=== PATIENT | male | born 1960 | race Caucasian/White ===

== ENCOUNTER 2023-02-06 05:16 | Observation (INO) ==
--- NOTE | 2022-12-31 14:57 | PAT Medication Instructions ---
Medication Instructions Date of Service December 31, 2022 Home Medications Medication Instructions Recorded amoxicillin 500 mg tablet 2,000 mg PO ONCE #4 tabs 10/17/22 amoxicillin 500 mg tablet 2,000 mg PO ONCE Continue as directed amoxicillin 500 mg tablet 2,000 mg PO ONCE Other Notes NOTHING TO EAT OR DRINK AFTER MIDNIGHT. If you have any questions please call us at [phone] or [phone] or [phone] or [phone]
--- NOTE | 2023-01-08 10:56 | Anesthesiology Consultation ---
Date of Service January 08, 2023 Assessment & Plan (1) Encounter for pre-operative examination: - COVID screening: Per assessment on 01/08: No known COVID-19 positive contacts or current COVID-19 related symptoms. Travel screen negative. Patient vaccinated. At surgeon discretion if preop Covid testing being done. - Outpatient joint assessment: Pt currently scheduled for inpatient pathway. If surgeon requests review for outpatient joint pathway, patient is an acceptable candidate for outpatient joint program from anesthesia standpoint pending surgeon's office assessment that patient is motivated, has good support and completes [facility] preop requirements. - S/P Right TKA (04/18/20): SAB at L3-4 (x1 attempt) + PNB at [facility]. No issues noted per post-op anesthesia progress note. - S/P Right open biceps repair (11/14/20): LMA#5 at [facility] Chart Review Chart Review: Acceptable Risk for Surgery and Patient seen in Pre Admission Testing Teaching & Discussion Pre-Anesthesia Teaching/Discussion Notes: Instructed NPO after midnight before surgery,except medications with 15 cc of water. Medication instructions provided according to the PAT guidelines. History Surgery Operation Date: 02/06/23 07:00 Proposed Procedures p Left Total Knee Arthroplasty - Kermit Peralta MD Height/Weight Height: 5 ft 11 in Weight: 104.6 kg Allergies Allergy/AdvReac Type Severity Reaction Status Date / Time aspirin Allergy Mild eye Verified 12/31/22 13:19 swelling Medications Home Medications Medication Instructions Recorded Confirmed Last Taken amoxicillin 500 mg tablet 2,000 mg PO ONCE #4 tabs 10/17/22 12/31/22 Unknown Past Medical History Medical History GERD (gastroesophageal reflux disease) Hemochromatosis associated with mutation in HFE gene Therapeutic phlebotomy approximately every other month History of COVID-19 Antibody test performed when donating blood 10/17/2020 and was positive (pt states he never had symptoms)- had Covid in 07/2020 Left knee DJD Obesity Osteoarthritis Umbilical hernia Exercise / Class Metabolic Activity II 4-5 Yardwork/Stairs/Walk up hill Past Family History Family History Other No family history of adverse response to anesthesia Past Surgical History Surgical History History of colonoscopy History of surgery Right open biceps repair (11/14/20): LMA#5 at [facility] History of total knee replacement Right Hx of arthroscopy of knee Right x2 Hx of tonsillectomy Hx of vasectomy Past Anesthesia History No Hx of Anesthesia Complications and No Family Hx of Anesthesia Complications History of PONV No Hx of PONV and No Hx of Motion Sickness Social History Smoking Status: Never smoker Do You Dip or Chew Tobacco: No Hx Alcohol Use: Yes Alcohol type: beer alcohol intake frequency: a few times a week Hx Substance Use: No substance use type: does not use Review of Systems Patient denies chest pain, shortness of breath, dyspnea on exertion, fever, chills, cough, wheezing, palpitations. Physical Exam Vital Signs VITALS BP 155/92 P 70 TEMP 97.8 SP02 95%RA RESP 18 PHYSICAL Full cervical extension range of motion. Full TMJ range of motion. TMD 3.5 finger breaths Mallampati Score 3 Dentition: missing teeth, crown (molar) Lungs: clear throughout to auscultation Cardiac: regular rate and rhythm, no murmurs noted Spine: normal Carotid arteries: negative bruit Extremities: no LE edema Lab Results Anesthesia Preop Results Results Anesthesia Widget: WBC 5.84 K/ul (4.8-10.8) 01/08/23 Hgb 16.9 g/dl (14.0-18.0) 01/08/23 Hct 48.6 % (42.0-52.0) 01/08/23 Plt 254 K/uL (130-400) 01/08/23 Na 138 mmol/L (136-145) 01/08/23 K 4.2 mmol/L (3.5-5.1) 01/08/23 Cl 106 mmol/L (98-107) 01/08/23 CO2 25 mmol/L (21-32) 01/08/23 BUN 16 mg/dl (6-23) 01/08/23 Creat 0.99 mg/dl (0.6-1.4) 01/08/23 Glucose Level 92 mg/dl (70-99(Fasting)) 01/08/23 PT 11.0 Seconds (9.0-12.0) 01/08/23 PTT 29.3 Seconds (21.0-31.0) 01/08/23 INR 1.0 (0.9-1.1) 01/08/23 Blood Type O Positive 01/08/23 Antibody Screen NEGATIVE 01/08/23 Testing Electrocardiogram Date: 01/08/23 NSR at 74bpm. Possible LAE. Chest X-Ray Date: 01/08/23 FINDINGS: There are low lung volumes. The lungs are clear. No pleural effusions. No pneumothorax. The cardiac silhouette remains top normal in size. This may be accentuated by the low lung volumes and remains unchanged. IMPRESSION: No significant change compared to the prior study. No acute process. COVID-19 Risk Screen Screening Information COVID-19 Screen Date: 01/08/23 Exposure 21 Days Family/Household +COVID Last 21 Days: No Exposure 10 Days Any COVID Exposure Last 10 Days: No Symptoms Last 10 Days Experienced COVID Sx Last 10 Days: No + COVID 0-90 Days COVID + in Last 0-90 Days: No
--- NOTE | 2023-02-01 11:42 | History and Physical Report ---
CHIEF COMPLAINT: Persistent progressive left knee pain, discomfort and stiffness. HISTORY OF PRESENT ILLNESS: The patient is a 62-year-old gentleman from [place], who presents now for followup and surgical treatment of his left knee. He has got a long history of knee problems, h ad his right knee replacement about 2-1/2 years ago. He has done well with this, but then now been l imited more by his left knee pain and discomfort. 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 It is a global pain. The more he is up on it, the more it hurts. He has been through extensive conservative treatment in the past, which has not really helped much. Hi s knee has become pretty stiff. PAST MEDICAL HISTORY: Noncontributory. PAST SURGICAL HISTORY: Includes right knee replacement done on 04/18/2020. ALLERGIES: ASPIRIN. CURRENT MEDICATIONS: Celebrex. SOCIAL HISTORY: A 62-year-old male. Lives in [place]. 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 Does not s moke. FAMILY HISTORY: Noncontributory. REVIEW OF SYSTEMS: Negative for diabetes. Denies any chest pain or shortness of breath. No history of DVT or PE. No known bleeding problems. PHYSICAL EXAMINATION: GENERAL: Healthy, pleasant, middle-aged male. Looks to be in pretty good health. HEENT: Benign. NECK: Supple. No lymphadenopathy. LUNGS: Clear to auscultation. HEART: Regular rate and rhythm. ABDOMEN: Soft, nontender, nondistended. EXTREMITIES: Grossly neurovascularly intact except as follows. Examination of the left knee reveals a varus deformity to his knee. He has got about flexion contrac ture of 15 degrees and only bends to about 110. Fairly stiff knee. He has got bony hypertrophy. Mo derate size knee effusion. No pain with hip motion. No instability. Examination of the right knee reveals a well-healed incision. He has got an anatomic alignment to th e knee. Range of motion is 0-120. X-RAYS: X-rays of the left knee were reviewed. It shows advanced left knee tricompartment DJD. He has got near complete loss of his medial joint space. He has got osteophytes in all 3 compartments. He has got posterior osteophytes as well. The right knee replacement looks to be in good position w ithout problems. ASSESSMENT: A 62-year-old male, self-employed [employer], almost 3 years out from right knee repla cement with left knee degenerative joint disease. He has got pretty extensive disease and a pretty s tiff knee. He has failed conservative measures and he would like to have his left knee fixed. His r ight knee is doing well. PLAN: We will proceed with left knee replacement. The risks and benefits of this procedure were exp lained to the patient and include but not limited to DVT, PE, , infection, neurological injury, vascular injury, bleeding problem, pain, limited range of motion, stiffness, failure to relieve sympt oms, incomplete relief of symptoms, etc. The patient understands and desires to proceed. Informed c onsent was obtained. He is going to plan to stay in the hospital overnight. We will probably be able to get him in therap y the next morning and discharge to home with some home health. Job ID: [id number]
[~2023-02-06 05:16] MED LIST: ALLERGY Noted to ORDERED Medication SCH
[2023-02-06] MEDS ORDERED: Nursing to Pharmacy Communication SCH (05:45)
[2023-02-06] MEDS ORDERED: Scopolamine 1 MG TDSY TD SCH (06:00)
[2023-02-06] MEDS ORDERED: BUPIVACAINE LIPOSOME/PF 266 MG, BUPIVACAINE/EPINEPHRINE 50 ML, SODIUM CHLORIDE 0.9% PF ... INFIL SCH (06:00)
[2023-02-06] MEDS ORDERED: LR 500ML BOLUS, THEN 15ML/HR IV SCH (06:00)
[2023-02-06] MEDS ORDERED: dexAMETHasone**PF** 10 MG/ML VIAL IV SCH (06:00)
[2023-02-06] MEDS ORDERED: FAMOTIDINE 20 MG TAB PO SCH (06:00)
[2023-02-06] MEDS ORDERED: TRANEXAMIC ACID 1,000 MG **IV Intra-op IV SCH (06:00)
[2023-02-06] MEDS ORDERED: LR 60ML/HR IV SCH (06:00)
[2023-02-06] MEDS ORDERED: ceFAZolin 2000MG 2,000 MG/15 ML SYR IV SCH (06:00)
[2023-02-06] MEDS ORDERED: METOCLOPRAMIDE HCL 10 MG TABLET PO SCH (06:00)
[2023-02-06] MEDS ORDERED: CeleBREX 200 MG CAP PO SCH (06:00)
[2023-02-06] MEDS ORDERED: ROPIVACAINE 0.5% 5 MG/ML 30 ML VIAL ONE (06:15)
[2023-02-06] MEDS ORDERED: BUPIVACAINE/EPINEPHRINE 0.25% 1:200,000 30 ML VIAL ONE (06:39)
[2023-02-06] MEDS ORDERED: SODIUM CHLORIDE 0.9% PF 50 ML VIAL ONE (06:39)
[2023-02-06] MEDS ORDERED: BUPIVACAINE LIPOSOME 1.3% 266 MG/20 ML VIAL ONE (06:40)
[2023-02-06] MEDS ORDERED: MIDAZOLAM HCL 1 MG/ML 2ML VIAL ONE (06:40)
[2023-02-06] MEDS ORDERED: PROPOFOL IV EMULSION 10 MG/ML 20 ML VIAL IV ONE (06:45)
--- NOTE | 2023-02-06 06:49 | History & Physical Bridge Note ---
Date of Service February 06, 2023 History & Physical Bridge Note I have examined the patient, reviewed the History & Physical and in the interval since the performance of the History & Physical I have noted the following changes of clinical significance: no changes noted
[2023-02-06] MEDS ORDERED: ATROPINE SULFATE 0.1 MG/ML 10ML SYR IV PRN (07:07)
[2023-02-06] MEDS ORDERED: ePHEDrine sulfate 50 MG/ML AMP IV PRN (07:07)
[2023-02-06] MEDS ORDERED: ONDANSETRON INJ 2 MG/ML 2 ML VIAL IV PRN ×2 (07:07→10:09)
[2023-02-06] MEDS ORDERED: HYDROmorphone INJ 1 MG/ML SYRINGE IV PRN (07:07)
--- NOTE | 2023-02-06 09:00 | Operative Report ---
PG Post Operative Report Pre & Post Diagnosis Operation Date: 02/06/23 07:00 Pre-Op Diagnosis: Left Knee Advanced Degenerative Joint Disease Post-Op Diagnosis: Left Knee Advanced Degenerative Joint Disease I identified the patient and participated in the time-out.: Yes Procedure Operation Date: 02/06/23 07:00 Actual Procedures p Left Total Knee Arthroplasty(Left) - Kermit Peralta MD Surgeon Kermit Peralta MD Supervisor Riveting Arnoldo Owens PA-C Estimated Blood Loss 50 Findings Consistent with Post-Op Diagnosis Operative findings revealed advanced and extensive grade 4 [id number] disease in the medial and patellofemoral compartments. He did have some focal grade 4 changes of the lateral femoral condyle as well. Fixed varus deformity to his knee with about a 15 degree flexion contracture. Specimens Left knee sent for pathology Anesthesia Type Spinal MAC Complications none Disposition Accompanied Patient To Recovery: No Indications Patient is a 62-year-old fairly active independent self-employed or[employer] who has had a long history of bilateral knee pain discomfort. Has been through extensive conservative treatment the past. He had his right knee replaced several years ago and done well with this. He continued be limited by left knee pain discomfort and swelling. He elected proceed with total knee arthroplasty. Description of Procedure Operative implants consist of: 1 Biomet Vanguard size 72.5 left posterior stabilized femoral component. 2. Biomet size 79 tibial tray. 3. 10 mm posterior stabilized polyethylene insert. 4. 34 x 8 and half all poly patella. The patient was taken to the operating, identified, and placed on the operating table supine position. All contact areas were appropriately padded. A spinal anesthetic and abductor canal block had been provided in the holding area. A left thigh turn was then placed. Left lower extremity was then prepped and draped in usual sterile fashion. The left leg was elevated exsanguinated with the use of an Esmarch and the tourniquet was placed at 300 mmHg. An anterior posterior left knee was then performed to longitudinal incision centered over the patella. Sharp dissection was carried through subcutaneous tissue down the extensor mechanism. Medial parapatellar arthrotomy incision was made. Some subperiosteal dissection was carried out medially. The fat pad was resected from Neath patella tendon. Lateral patellofemoral ligament was released. Patella subluxated laterally and the knee was flexed. The osteophytes taken on distal femur. The ACL and PCL were then released from distal femur the tibia subluxated anteriorly. The external tibial alignment jig was then placed the interface the tibia and adjusted 16 mm medially. Proximal tibial cut was made to move out a millimeter bone from the most deficient aspect of the posterior medial tibial plateau. Some osteophytes taken off medially. Tibia sized to a size 79. Attention drawn the femur. The distal femur examined the sharp drop with intramedullary canal was suction. A left 6 degree valgus cutting guide was placed. Distal femoral cutting block was pinned in place. Distal femoral cut was made to take an additional 3 mm of bone off distal femur. The femur was then sized to a size 72.5. The AP cutting block was pinned parallel to the epicondylar axis which was 5 degrees of external rotation. The anterior cut, anterior chamfer, posterior cut, posterior chamfer cuts were made. The box cutting guide was placed in just slight lateral and the box cut was made. The knee was flexed. The remnants of the medial lateral menisci were excised. The osteophytes taken off the posterior aspect the femur. A trial femoral component was placed. The tibial tray was pinned in maximum external rotation and the drill and stem punch were used to create defect in proximal tibia for the tibial tray. The knee was then trialed and and the 10 mm insert fit most appropriately. Attention drawn the patella. The patella was cleaned of all soft tissues. Patella thickness measured 24 mm in thickness was cut down to 15. Was sized to a size 34 patella. The lug holes were drilled for the 34 patella. Lateral osteophytes removed. Patella button was placed. Knee was taken through range of motion patella tracked nicely with no thumbs test. Attention drawn to placing permanent components. Nupathe all trial components were removed. Bone plug was placed in the distal femur limit blood loss. Double batch Palacos G cement was mixed. Biomet Vanguard size 72.5 left posterior stabilized femoral component, size 79 tibial tray, a 10 mm posterior stabilized polyethylene insert, and a 34 x 8 and half all poly patella then cemented in place. Knee was brought out in full extension till cement hardened. Final cement check was then performed. Pericapsular tissues were injected with total of 100 cc of combination of 20 of Exparel, 30 cc normal saline, 50 cc of quarter percent Marcaine with epinephrine. Patient did receive 1 g tranexamic acid. The tourniquet was then let down for final tourniquet time 52 minutes. Hemostasis reduced electrocautery. The wound was once again irrigated. Extensor mechanism then closed with combination 1 PDS suture #1 Vicryl suture in [id number] fashion. The extensor mechanism checked found to be intact with subcutaneous tissues then closed with 2 Dexon suture in buried erupted fashion skin was closed skin eboni. Leg was then cleaned and dried and sterile dressing was Xeroform, 4 fours, sterile cast padding, Keven bandage were applied. Patient then transferred to the recovery room in stable condition. Patient tolerated procedure well and there were no complications. Miguelangel Owens, my physician technician assistant, was present for the entire procedure. His assistance was essential and required for appropriate patient positioning, prepping and draping, surgical exposure, performing the technical details of the operation, placement the implants, closure of the wound, and placement of the sterile bandage. I attest to the content of the Intraoperative Record and any orders documented therein. Any exceptions are noted below.
--- NOTE | 2023-02-06 09:24 | Anesthesiology Progress Note ---
Date of Service February 06, 2023 Anesthesia Post Procedure Vital Signs Vital Signs: Temp Pulse Pulse Resp BP Pulse Ox O2 Del Method 02/06/23 09:20 36.4 C L 78 16 125/71 96 Room Air 02/06/23 09:10 76 14 117/82 96 Room Air 02/06/23 09:00 83 16 106/68 98 Oxymask 02/06/23 08:48 36.4 C L 89 16 102/61 98 Oxymask 02/06/23 05:37 36.8 C 71 20 142/105 H 96 Room Air O2 Flow Rate 02/06/23 09:20 02/06/23 09:10 02/06/23 09:00 4 02/06/23 08:48 6 02/06/23 05:37 Transfer of Care Handoff Completed per policy Notes Mental Status: alert / awake / arousable Patient Amnestic to Procedure: Yes Nausea / Vomiting: adequately controlled Pain: adequately controlled Airway Patency, RR, SpO2: stable & adequate BP & HR: stable & adequate Hydration State: stable & adequate Anesthetic Complications: no major complications apparent
--- NOTE | 2023-02-06 09:33 | XRay Report ---
TWO VIEWS LEFT KNEE CLINICAL HISTORY: Postoperative examination. FINDINGS: AP and crosstable lateral portable views of the left knee are obtained. A left knee arthrop lasty is in near anatomic alignment. There has been undersurface remodeling of the patella. No acute fracture is seen. There are expected postoperative changes around the knee including skin clips, soft tissue edema, and subcutaneous gas. IMPRESSION: Expected postoperative changes status post left knee arthroplasty. No acute fracture is s een. ACT 112: Negative or not required by law. Electronically signed by: João Redman M.D. 02/06/2023 9:32 AM
[2023-02-06] MEDS ORDERED: HYDROmorphone INJ 0.5 MG/0.5 ML SYR IV PRN (10:09)
[2023-02-06] MEDS ORDERED: NALOXONE HCL 0.4 MG/1 ML VIAL/CARP IV PRN (10:09)
[2023-02-06] MEDS ORDERED: MAGNESIUM HYDROXIDE SUSP 30 ML UDC PO PRN (10:09)
[2023-02-06] MEDS ORDERED: diphenhydrAMINE Capsule 25 MG CAP PO PRN (10:09)
[2023-02-06] MEDS ORDERED: bisacodyL 10 MG SUPP PR PRN (10:09)
[2023-02-06] MEDS ORDERED: ALUMINUM/MAGNESIUM SUSP 30 ML UDC PO PRN (10:09)
[2023-02-06] MEDS ORDERED: oxyCODONE HCL IR 5 MG TAB (IMMEDIATE RELEASE) PO PRN (10:09)
[2023-02-06] MEDS ORDERED: METOCLOPRAMIDE HCL INJ 5 MG/ML 2 ML VIAL IV PRN (10:09)
[2023-02-06] MEDS: SODIUM CHLORIDE 0.9% 1000ML 1,000 ML IV SCH ×2 (10:26→19:53)
[2023-02-06] MEDS: TAMSULOSIN HCL 0.4 MG CAP PO SCH (11:06)
[2023-02-06] MEDS: SENNA 8.6 MG TAB PO SCH ×2 (11:06→20:58)
[2023-02-06] MEDS: DOCUSATE SODIUM 100 MG CAP PO SCH ×2 (11:06→20:57)
[2023-02-06] MEDS: MULTIVITAMIN TAB PO SCH (11:06)
[2023-02-06] MEDS: KETOROLAC 30 MG/ML VIAL IV SCH ×3 (11:07→23:40)
[2023-02-06] MEDS: ceFAZolin 2000MG 2,000 MG/15 ML SYR IV SCH ×2 (14:16→23:40)
[2023-02-06] MEDS: ACETAMINOPHEN 500 MG TAB PO SCH ×2 (14:16→22:04)
[2023-02-06] MEDS ORDERED: TRANEXAMIC ACID / 0.7% NACL 1,000 MG/100 ML BAG IV SCH (15:00)
[2023-02-06] MEDS: ASCORBIC ACID 500 MG TAB PO SCH (16:56)
[2023-02-06] MEDS: Scopolamine CHECK PATCH PLACEMENT SCH (16:57)
[2023-02-06] MEDS ORDERED: SENNA 8.6 MG TAB PO SCH (21:00)
[2023-02-07] MEDS: Scopolamine CHECK PATCH PLACEMENT SCH ×2 (00:04→10:24)
[2023-02-07] MEDS: ACETAMINOPHEN 500 MG TAB PO SCH (05:26)
[2023-02-07] MEDS: KETOROLAC 30 MG/ML VIAL IV SCH (05:26)
[2023-02-07 06:12] LABS: Hematocrit (blood only) 36.4 % (42.0-52.0); Hemoglobin 12.6 g/dl (14.0-18.0); Mean Corpuscular Hgb Conc 34.6 g/dL (32.0-36.0); Mean Corpuscular Volume 86.7 fL (80.0-100.0); Mean Platelet Volume 10.2 fL (9.4-12.4); Platelet Count 213 K/uL (130-400); RDW Standard Deviation 44.4 fL (36.4-46.3); White Blood Count 9.38 K/ul (4.8-10.8)
[2023-02-07 06:25] LABS: BUN Creatinine Ratio 19.1 (10-20); Calcium 8.1 mg/dl (8.6-10.3); Creatinine Clr Calc Pharmacy 101.2 ml/min; Est GFR (African American) 101.7 ml/min; Est GFR (Non-African American) 87.8 ml/min; Potassium 3.7 mmol/L (3.5-5.1)
[2023-02-07] MEDS: MULTIVITAMIN TAB PO SCH (07:25)
[2023-02-07] MEDS: TAMSULOSIN HCL 0.4 MG CAP PO SCH (07:25)
[2023-02-07] MEDS: ASCORBIC ACID 500 MG TAB PO SCH (07:26)
[2023-02-07] MEDS: DOCUSATE SODIUM 100 MG CAP PO SCH (07:26)
[2023-02-07] MEDS: SENNA 8.6 MG TAB PO SCH (07:26)
[2023-02-07] MEDS ORDERED: dexAMETHasone 10 MG in SYRINGE 0 ML IV SCH (08:00)
--- NOTE | 2023-02-07 08:08 | Progress Notes ---
DATE OF SERVICE: 02/07/2023. SUBJECTIVE: A 62-year-old gentleman, postoperative day 1 from a left knee replacement. He is doing well. He got up and walked yesterday. Really not having much pain. No chest pain or shortness of b reath. Not feeling dizzy or lightheaded. OBJECTIVE: VITAL SIGNS: Temperature 36.3. Vital signs are stable. GENERAL: Shows a pleasant middle-aged male. He is sitting up in bed, looks comfortable. LUNGS: Clear to auscultation. HEART: Regular rate and rhythm. ABDOMEN: Soft, nontender, nondistended. EXTREMITIES: Grossly neurovascularly intact except as follows. Examination of the left leg reveals the leg to be well aligned. His dressings in place. Just a slig ht bit of bloody drainage in the front of his cabrera area. He can dorsiflex and plantarflex his foot a ppropriately. He has got a good straight leg raise. LABORATORY DATA: Hemoglobin 12.6. Hematocrit 36.4. Electrolytes are stable. ASSESSMENT: A 62-year-old male, postoperative day 1 from a left knee replacement, doing well. Pain is controlled. He is neurologically intact. PLAN: 1. DVT prophylaxis includes thigh-high TEDs, SCDs, and he is going to be on Xarelto for 30 days due to an aspirin intolerance. 2. PT/OT, weightbear as tolerated. Left total knee protocol. 3. Pain control, doing okay with current pain regimen. 4. Disposition: Plan to discharge to home later today with home health if does okay in therapy. Job ID: [id number]
[2023-02-07] MEDS ORDERED: RIVAROXABAN 10 MG TABLET PO SCH (09:00)
--- NOTE | 2023-02-11 08:47 | Discharge Summary ---
Date of Service February 11, 2023 Discharge Data Procedures Performed Operation Date: 02/06/23 07:00 Actual Procedures p Left Total Knee Arthroplasty(Left) - Kermit Peralta MD Hospital Course (1) Status post total left knee replacement: This is a 62 year old patient admitted on 02/06/23 and underwent total knee arthroplasty. He tolerated the procedure well and there were no complications. Transferred to the PACU post op and later to the orthopedic floor for further care. He was given ancef for antibiotic prophylaxis. He was also given EDNA stockings, SCDs, and xarelto for DVT prophylaxis. Hemoglobin, hematocrit, and vital signs were monitored during his hospital stay and remained stable. Did not require any blood transfusions. There were no complications during his hospital stay. By post op day #1 the patient was tolerating a regular diet, pain was reasonably controlled with oral pain medicine, and he was participating in physical therapy. On post op day #1 the patient was discharged home and set up with home health care. He was given printed discharge instructions including prescriptions for extra strength tylenol, zofran, senokot, oxycodone, flomax, and xarelto. Continue physical therapy, weight bearing as tolerated. Continue EDNA stockings. Follow up approximately 2 weeks post op or sooner if there are problems or concerns. Coding Level of Care Code None Diagnoses Status post total left knee replacement Z96.652
== END 2023-02-07 11:21 | disposition home health service (06) ==
LOC: 3E 05:16 → ASU 05:16